=== PATIENT | female | born 1945 | race Caucasian/White ===

== ENCOUNTER 2020-03-25 17:48 | Emergency (ER) | payer MEDICARE ==
[~2020-03-25] VITALS: Ht 162.6 cm; Wt 47.6 kg
[2020-03-25] MEDS ORDERED: TDAP DIPH,PERTUSS,TET VAC/PF 0.5 ML DISP.SYRIN IM ONE ×2 (18:15→18:39)
[2020-03-25] MEDS ORDERED: NEOMY/BACITRA/POLYMYXIN B OINT UD PACKET TP ONE ×2 (19:09→19:15)
[2020-03-25] MEDS ORDERED: LIDOCAINE HCL 2% 20 ML VIAL TP ONE (19:15)
--- NOTE | 2020-03-25 19:15 | NUR ---
Patient discharged to home in stable condition. Written and verbal after care instructions given. Patient AND HOSTESS verbalize understanding of instructions. Stressed follow up or return to ER for worsening s/s.PT ACCOMPANIED BY FRIEND WHO IS CARING FOR THE PT AT HOME.
== END 2020-03-25 19:16 | disposition home or self-care (01) ==
LOC: ER 17:48
DX: S01.511A Laceration without foreign body of lip, initial encounter (principal); S01.81XA Laceration without foreign body of other part of head, initial encounter; W01.0XXA Fall on same level from slipping, tripping and stumbling without subsequent striking against object, initial encounter; Y92.89 Other specified places as the place of occurrence of the external cause; F03.90 Unspecified dementia, unspecified severity, without behavioral disturbance, psychotic disturbance, mood disturbance, and anxiety
CPT/HCPCS: 90715